=== PATIENT | male | born 1990 | race Caucasian/White ===

== ENCOUNTER 2025-05-11 00:40 | Emergency (ER) | payer SELFPAY ==
--- NOTE | ~2025-05-11 | XR_ITS ---
CLINICAL HISTORY: Pain; Fall Right wrist, 3 views COMPARISON: None provided FINDINGS: No acute fracture. No dislocation. Unremarkable soft tissues. IMPRESSION: No acute findings. This document has been electronically signed by: Eduardo Morocho MD on 05/11/2025 02:46:19
--- NOTE | ~2025-05-11 | XR_ITS ---
CLINICAL HISTORY: mid R hand tender, swollen. FOOSH Right hand, 3 views COMPARISON: None provided FINDINGS: No acute fracture. No dislocation. Unremarkable soft tissues. IMPRESSION: No acute findings. This document has been electronically signed by: Eduardo Morocho MD on 05/11/2025 02:44:27
[2025-05-11 00:48] VITALS: BP 142/84; PULSE 56; O2SAT 98
[2025-05-11 01:01] VITALS: BP 149/82; PULSE 56; RESP 19; O2SAT 98; BMI 26.1
[2025-05-11 01:02] VITALS: BP 149/82; PULSE 56; RESP 19; TEMP 36.7; O2SAT 98
--- NOTE | 2025-05-11 01:46 | ED.EXTPRO ---
HPI - Extremity Problem General Chief complaint: Extremity Injury, Upper Stated complaint: FALL,R WRIST PAIN Time Seen by Provider: 05/11/25 01:45 History of Present Illness ED Provider: michaela HPI Narrative: 34 M MAMI bowman. Right hand swollen painful. He has had previous surgery with the dorsal scar over the 3rd metacarpal he is not sure exactly what surgery this was but it was remote. He fell from a few feed high directly onto the right hand denies any other injury no head strike chest injury or any other pain or injury Related Data Previous Rx's ?Medication ?Instructions ?Recorded acetaminophen 500 mg capsule 1,000 mg (2 x 500 mg) PO .q8 PRN 05/11/25 fever or pain #30 caps ibuprofen 600 mg tablet 600 mg PO Q8H PRN fever or pain 05/11/25 #30 tabs Allergies Allergy/AdvReac Type Severity Reaction Status Date / Time No Known Allergies Allergy Verified 05/11/25 01:04 [facility] Social History Social History Alcohol intake: never Smoked in Last 30 Days: Yes Use of substances other than those prescribed or required for medical reasons: Yes Substance Use Type: Marijuana Substance Use Frequency: Daily Last Used Substance: Hours (ago) Any prior treatment program specific to substance use: No Advance Directives: No Advance Directives Information Provided: Yes Do you have a plan to hurt others: No Plan Physical Exam Exam: Exam: GENERAL: Awake alert oriented seems in significant pain HEAD/NECK: No visual trauma. EYES: Normal to inspection. No conjunctival erythema. No discharge. ENMT: Hearing grossly normal. External nose normal. RESPIRATORY: Respiratory effort normal. CARDIOVASCULAR: Additional details (Grossly well perfused). SKIN: No jaundice. NEUROLOGICAL: Alert. Moving all extremities x4. Additional details (No gross motor deficits. Normal tone. ). PSYCHIATRIC: Alert. Appearance appropriate for situation. __ MSK: Right hand swollen. Radius and ulna distally without tenderness or deformity. Swelling substantially over the carpal and proximal dorsal metacarpal bones. Well-perfused digits intact sensation. Limited range of motion with digital opposition due to pain and swelling Vital Signs: Vital Signs: Last Vital Signs Temp 98.1 F 05/11/25 03:55 Pulse 59 05/11/25 03:55 Resp 19 05/11/25 03:55 BP 140/78 H 05/11/25 03:55 Pulse Ox 98 05/11/25 03:55 O2 Del Method Room Air 05/11/25 03:55 BMI result Body Mass Index 26.1 Course Course Course Narrative: 3:24 AM 05/11/2025 (Christiano CLINE): Patient was signed out to this provider at shift change, in summary the patient is a 34-year-old male presenting to the ED for evaluation of left hand and wrist pain with associated swelling that began around 22:00 when he fell over a [place] while at work. Patient was treated with ibuprofen, p.o. morphine, and sent for x-rays which were pending at time of sign-out. At this time the patient's x-rays have resulted and showed no evidence of acute fracture. The patient will be discharged with velcro wrist splint and supportive care, with instructions to follow up with occupational health. Medications Administered Discontinued Medications Generic Name Dose Route Start Last Admin Trade Name Freq PRN Reason Stop Dose Admin Ibuprofen 600 mg 05/11/25 01:45 05/11/25 02:11 Ibuprofen 600 Mg Tablet PO 05/11/25 01:46 600 mg ONCE ONE Administration Morphine Sulfate 15 mg 05/11/25 01:45 05/11/25 02:11 Morphine Sulfate Immed Release 15 Mg Tablet PO 05/11/25 01:46 15 mg ONCE ONE Administration Medical Decision Making Medical Decision Making MDM Narrative: Medical Decision Making: Right FOOSH tender swollen hand Plan for x-ray of the right hand pain control Preliminary Favored Differential Diagnosis: [ ] among additional considered etiologies Testing Interpreted Independently: ?See below for details Radiology or Lab testing Results Reviewed: ?See below for details Consults: ?See below for details Independent Historians/External Chart Reviews: ?See below for details Social Determinants of Health Impacting MDM/Planning: ?See below for details Discharge Plan Discharge Clinical Impression: Sprain and strain of wrist, Contusion of left hand Patient Disposition: Home, Self-Care Instructions: Contusion in Adults (ED), Wrist Sprain (ED) Additional Instructions: Thank you for choosing [facility] Emergency Department for your care today. Thankfully your x-rays today show no evidence of acute fracture. At this time there is no indication for admission to the hospital or continued ED observation, and it is safe to discharge you home. Your symptoms are likely secondary to a sprain and contusion of your wrist and hand. You should take alternating (staggered) doses of ibuprofen 600mg and Tylenol 1000mg every 4 hours as needed for any additional pain. Please rest the injured area, and apply ice for 20 minutes every hour. Please follow up with our work connection for continued management of your injury which occurred at work. Please follow up with your primary care physician for re-evaluation, additional management of your symptoms, and continued preventative care. If you do not have a primary care physician, please call the [facility] at [phone] to establish a new primary care physician. While waiting to establish your new primary care physician, you can call our [facility] at [phone] for non-emergency needs. Please return to the emergency department if you develop a severe or sudden change in your symptoms, a fever over 100.4 that does not improve with Tylenol or Ibuprofen, recurrent vomiting, or any other new or worsening symptoms or concerns. Prescriptions: New ibuprofen 600 mg tablet 600 mg PO Q8H PRN (Reason: fever or pain) Qty: 30 0RF acetaminophen 500 mg capsule 1,000 mg PO .q8 PRN (Reason: fever or pain) Qty: 30 0RF Referrals: Work Connection [Outside] Clinical Impression: Sprain and strain of wrist; Contusion of left hand Interventions: ED Discharge Assessment Last Done: 05/11/25 03:55 Discharge Date/Time: 05/11/25 04:09 Print Language: Tajik
[2025-05-11 02:00] VITALS: BP 140/78; PULSE 59; RESP 19; TEMP 36.7; O2SAT 98
[2025-05-11] MEDS: Morphine Sulfate Immed Release 15 MG TABLET PO (02:11)
[2025-05-11 03:55] VITALS: BP 140/78; PULSE 59; RESP 19; TEMP 36.7; O2SAT 98
== END 2025-05-11 04:09 | disposition home or self-care (01) ==
PROVIDERS: Emergency Provider Emergency Medicine
DX: S63.501A Unspecified sprain of right wrist, initial encounter (principal); S66.911A Strain of unspecified muscle, fascia and tendon at wrist and hand level, right hand, initial encounter; S60.221A Contusion of right hand, initial encounter; W01.0XXA Fall on same level from slipping, tripping and stumbling without subsequent striking against object, initial encounter; Y93.9 Activity, unspecified; Y92.89 Other specified places as the place of occurrence of the external cause; Y99.0 Civilian activity done for income or pay
CPT/HCPCS: 73110; 73130; 99283; 99284

== ENCOUNTER → 2025-05-11 01:49 | Outpatient (BNV) | payer SELFPAY | PROVIDERS: Emergency Provider Emergency Medicine; Visit Provider Radiology Diagnostic Radiology | DX: R22.31 Localized swelling, mass and lump, right upper limb (principal); M79.641 Pain in right hand; M25.531 Pain in right wrist; Z04.3 Encounter for examination and observation following other accident | CPT/HCPCS: 73110; 73130 ==